=== PATIENT | male | born 2000 | race Caucasian/White ===

== ENCOUNTER 2020-02-09 06:54 | Outpatient (NON) | payer BC, SELFPAY ==
[2020-02-09 18:28] LABS: SARS-CoV-2 RNA PCR Negative
== END 2020-02-09 06:55 ==
PROVIDERS: Visit Provider Nurse Practitioner
DX: R68.89 Other general symptoms and signs (principal); Z20.828 Contact with and (suspected) exposure to other viral communicable diseases
CPT/HCPCS: 87635; C9803; U0003